=== PATIENT | male | born 1960 | race Caucasian/White ===

== ENCOUNTER 2019-12-05 07:18 | Inpatient (IN) | payer OTHER ==
[2019-12-02 10:40] LABS: BASOPHILS # (AUTO) 0.03 x10^3/uL (0-0.1); BASOPHILS % (AUTO) 0 % (0-1); EOSINOPHILS # (AUTO) 0.06 x10^3/uL (0-0.4); EOSINOPHILS % (AUTO) 1 % (1-7); LYMPHOCYTES # (AUTO) 1.26 x10^3/uL (1-3.4); LYMPHOCYTES % (AUTO) 17 % (22-44); MD NO; MEAN CORPUSCULAR HEMOGLOBIN 31.9 pg (27.5-34.5); MEAN PLATELET VOLUME 6.9 fL (7.4-10.4); MONOCYTES # (AUTO) 0.35 x10^3/uL (0.2-0.8); MONOCYTES % (AUTO) 5 % (2-9); NEUTROPHILS # (AUTO) 5.69 x10^3/uL (1.8-6.8); NEUTROPHILS % (AUTO) 77 % (42-75); PLATELET COUNT 244 x10^3/uL (130-400); RED BLOOD COUNT 4.84 x10^6/uL (4.38-5.82); RED CELL DISTRIBUTION WIDTH 13.5 % (9.4-14.8)
[2019-12-02 10:49] LABS: ALBUMIN 4.3 g/dL (3.4-5.0); ANION GAP 4 mmol/L (5-15); CALCIUM 9.6 mg/dL (8.5-10.1); CHLORIDE 104 mmol/L (98-107)
[2019-12-02 10:52] LABS: ALANINE AMINOTRANSFERASE 49 U/L (12-78); ALKALINE PHOSPHATASE 89 U/L (45-117); BILIRUBIN,TOTAL 0.7 mg/dL (0.2-1.0); CREATININE 1.21 mg/dL (0.7-1.3); TOTAL PROTEIN 7.7 g/dL (6.4-8.2)
[~2019-12-05] VITALS: Ht 190.5 cm; Wt 106.0 kg
[~2019-12-05 07:18] MED LIST: ASPI325T17 PO; CHOL10003 PO; CYCL5TAB PO; FENTANYL PF 250 MCG/5ML ONE; GLUC1CAP18 PO; HYDROCHLOROTH12.5 MG PO; Iron PO; LEVE500T22 PO; LISI-170 PO; MAGN400T36 PO; MIDAZOLAM 1 MG/ML, 2ML ONE; NIAC500C3 PO; OMEG1CAP34 PO; OMEP-110 PO; ONE A DAY MEN PO; POTA20TA14 PO; SIMV40TA20 PO; TAMS-11 PO; TRIA80OI TP; Vitamin B12 PO; ZOLP-413 PO; [UNRECOGNIZED DRUG - CODE] PO
[2019-12-05] MEDS ORDERED: LACTATED RINGERS 1,000 ML IV SCH (07:29)
[2019-12-05] MEDS ORDERED: CHLORHEXIDINE 15 ML UDC ONE (07:30)
[2019-12-05] MEDS ORDERED: CHLORHEXIDINE 15 ML UDC MM ONE (07:30)
[2019-12-05] MEDS ORDERED: METOPROLOL 1 MG/ML, 5ML ONE (07:50)
[2019-12-05] MEDS ORDERED: hydrALAzine 20 MG/ML, 1ML ONE (07:50)
[2019-12-05] MEDS ORDERED: OPIUM/BELLADONNA SUPP.RECT 16.2-60 MG ONE (07:57)
[2019-12-05] MEDS ORDERED: FENTANYL PF 250 MCG/5ML ONE ×2 (10:49→13:06)
[2019-12-05] MEDS ORDERED: hydrALAzine 20 MG/ML, 1ML IV PRN (11:30)
[2019-12-05] MEDS ORDERED: FENTANYL PF 100 MCG/2ML IV PRN (11:30)
[2019-12-05] MEDS ORDERED: MEPERIDINE/PF 25MG/0.5ML IVPush PRN (11:30)
[2019-12-05] MEDS ORDERED: OXYcodone 5 MG/5 ML ORAL.SOL UDC PO PRN (11:30)
[2019-12-05] MEDS ORDERED: DIAZEPAM 5 MG/ML, 2ML IVPush PRN (11:30)
[2019-12-05] MEDS ORDERED: LABETALOL 5MG/ML, 20ML IV PRN (11:30)
[2019-12-05] MEDS ORDERED: HYDROmorphone 2 MG/ML, 1ML IVPush PRN (11:30)
[2019-12-05] MEDS ORDERED: KETOROLAC 30 MG/1 ML IV PRN (11:30)
[2019-12-05] MEDS ORDERED: ACETAMINOPHEN 325 MG TABLET PO PRN (11:30)
[2019-12-05] MEDS ORDERED: PROMETHAZINE 25 MG/ML, 1ML IV PRN (11:30)
[2019-12-05] MEDS ORDERED: ALBUTEROL SULFATE 2.5 MG/3 ML NPPB PRN (11:30)
[2019-12-05] MEDS ORDERED: SUGAMMADEX 200 MG/2 ML IVPush ONE (13:27)
[2019-12-05] MEDS ORDERED: SUCCINYLCHOLINE 20 MG/ML, 10ML ONE (13:27)
[2019-12-05] MEDS ORDERED: ROCURONIUM 10MG/ML,5ML ONE (13:27)
[2019-12-05] MEDS ORDERED: PROPOFOL 10 MG/ML, 20ML ONE (13:27)
[2019-12-05] MEDS ORDERED: DEXAMETHASONE 4 MG/ML, 1ML ONE (13:27)
[2019-12-05] MEDS ORDERED: CEFAZOLIN 1,000 MG ONE (13:27)
[2019-12-05] MEDS ORDERED: ONDANSETRON 2MG/ML, 2ML ONE (13:27)
[2019-12-05] MEDS ORDERED: NEOSTIGMINE 1 MG/ML, 10ML ONE (13:27)
[2019-12-05] MEDS ORDERED: GLYCOPYRROLATE 0.2MG/1ML, 5ML ONE (13:27)
[2019-12-05] MEDS ORDERED: FENTANYL PF 100 MCG/2ML ONE (14:33)
[2019-12-05] MEDS ORDERED: HYDROmorphone 1 MG/ML, 1ML INJ ONE (14:33)
[2019-12-05] MEDS ORDERED: ONDANSETRON 2MG/ML, 2ML IV PRN (16:00)
[2019-12-05] MEDS ORDERED: ZOLPIDEM 10MG TABLET PO PRN (16:00)
[2019-12-05] MEDS ORDERED: TEMAZEPAM 15 MG CAPSULE PO PRN (16:00)
[2019-12-05] MEDS ORDERED: MORPHINE SULFATE 4 MG/ML, 1ML IV PRN (16:00)
[2019-12-05] MEDS ORDERED: OPIUM/BELLADONNA SUPP.RECT 16.2-60 MG PR PRN (16:00)
[2019-12-05] MEDS: D5%-0.45NACL+KCL 20MEQ 1,000 ML IV SCH ×2 (16:09→23:12)
[2019-12-05] MEDS: ACETAMINOPHEN 500 MG TABLET PO SCH ×2 (16:09→22:08)
[2019-12-05] MEDS: FAMOTIDINE 20 MG/2 ML IVPush SCH (16:09)
[2019-12-05] MEDS: OXYcodone IR 5MG TABLET PO PRN ×2 (16:14→20:22)
[2019-12-05 20:03] VITALS: BP 137/99
[2019-12-05] MEDS: CYCLOBENZAPRINE 10 MG TABLET PO SCH (20:22)
[2019-12-06 00:02] VITALS: BP 143/83
[2019-12-06] MEDS: OXYcodone IR 5MG TABLET PO PRN ×4 (00:15→12:12)
[2019-12-06] MEDS: ACETAMINOPHEN 500 MG TABLET PO SCH ×2 (04:20→10:06)
[2019-12-06] MEDS: FAMOTIDINE 20 MG/2 ML IVPush SCH (04:20)
[2019-12-06 04:23] VITALS: BP 144/79
[2019-12-06] MEDS: D5%-0.45NACL+KCL 20MEQ 1,000 ML IV SCH ×2 (05:38→12:00)
[2019-12-06 06:28] LABS: ANION GAP 3 mmol/L (5-15); CALCIUM 8.6 mg/dL (8.5-10.1); CHLORIDE 106 mmol/L (98-107); CREATININE 1.07 mg/dL (0.7-1.3)
[2019-12-06 08:00] VITALS: BP 131/75
[2019-12-06] MEDS ORDERED: ENOXAPARIN 40 MG/0.4 ML SQ SCH (08:00)
[2019-12-06] MEDS: CYCLOBENZAPRINE 10 MG TABLET PO SCH (08:01)
[2019-12-06] MEDS ORDERED: LISINOPRIL 10 MG TABLET PO SCH (09:00)
[2019-12-06] MEDS ORDERED: HYDROCHLOROTHIAZIDE 12.5 MG CAPSULE PO SCH (09:00)
[2019-12-06] MEDS ORDERED: ASPI325T17 PO (09:52)
[2019-12-06 12:33] VITALS: BP 123/75
== END 2019-12-06 12:50 | disposition home or self-care (01) | DRG 708 ==
LOC: OUT 07:18 → 4NE 15:29 → OUT 16:06 → DCLOUNGE 12-06 12:45
PROVIDERS: ADMIT Urology; ATTEND Urology
PROC: 07BC4ZZ Excision of Pelvis Lymphatic, Percutaneous Endoscopic Approach (ICD-10-PCS; 2019-12-05)
PROC: 0WQF4ZZ Repair Abdominal Wall, Percutaneous Endoscopic Approach (ICD-10-PCS; 2019-12-05)
PROC: 8E0W4CZ Robotic Assisted Procedure of Trunk Region, Percutaneous Endoscopic Approach (ICD-10-PCS; 2019-12-05)
PROC: 03HY32Z Insertion of Monitoring Device into Upper Artery, Percutaneous Approach (ICD-10-PCS; 2019-12-05)
PROC: 0VT34ZZ Resection of Bilateral Seminal Vesicles, Percutaneous Endoscopic Approach (ICD-10-PCS; 2019-12-05)
PROC: 0VT04ZZ Resection of Prostate, Percutaneous Endoscopic Approach (ICD-10-PCS; principal; 2019-12-05 07:30)
DX: C61 Malignant neoplasm of prostate (principal); Z20.828 Contact with and (suspected) exposure to other viral communicable diseases; K42.9 Umbilical hernia without obstruction or gangrene; E78.5 Hyperlipidemia, unspecified; I10 Essential (primary) hypertension
CPT/HCPCS: 36415; J3490; 80048; 80053; 82570; 85014; 85018; 85025; 86850; 86900; 87635; 88305; 88309; 93005; C1729; G0378; J0690; J1100; J1650; J2250; J2405; J2704; J2710; J3010; C1760; J0330; J0360; J2270; J3480; J7120